=== PATIENT | male | born 1970 | race Caucasian/White ===

== ENCOUNTER → 2021-09-21 | Day surgery (SDC) | payer OTHER ==
[2021-09-19 11:04] VITALS: BMI 31.5
--- NOTE | 2021-09-20 18:03 | HP ---
HISTORY AND PHYSICAL DATE OF SURGERY: 09/21/2021 Jesus Santo is a 51-year-old gentleman seen with progressive right shoulder pain. We discussed treatment options with him. He elected to proceed with arthroscopy. Consent was obtained. PAST MEDICAL HISTORY: Noncontributory. PAST SURGICAL HISTORY: Knee arthroscopy. DAILY MEDICATIONS: None. ALLERGIES: NONE REPORTED. SOCIAL HISTORY: He denies current tobacco use. PHYSICAL EXAMINATION: Evaluation of the right shoulder: Flexion 150 degrees, abduction 120 degrees. External rotation is 40 degrees with some weakness. There is tenderness along the anterolateral acromion and rotator cuff insertion site. Impingement is positive at 90 degrees. Drop- arm sign is positive. Cross adduction sign is positive. Distal neurovascular exam is intact. IMAGING: Right shoulder radiographs revealed a type 2 acromion, evidence for acromioclavicular joint osteoarthritis. Right shoulder MRI revealed acromioclavicular joint osteoarthritis, impingement and partial rotator cuff tendon tear. IMPRESSION: 1. Right shoulder impingement with partial rotator cuff tear. 2. Right shoulder acromioclavicular joint osteoarthritis. PLAN: Right shoulder arthroscopy with subacromial decompression, possible arthroscopic rotator cuff repair, Thiago procedure and debridement. MMODL / IJN: [id number] /
[~2021-09-21] MED LIST: DEXAMETHASONE SOD PHOSPHATE 4 MG/ML 1 ML VIAL IV ONE; DEXAMETHASONE SOD PHOSPHATE 4 MG/ML 1 ML VIAL ONE; GLYCOPYRROLATE 0.2 MG/ML 2 ML VIAL ONE; HYDROmorphone 0.5 MG/0.5 ML SYRINGE IVP PRN; LACTATED RINGERS 1,000 ML IV SCH; LIDOCAINE 1% (10MG/ML) FOR IV START INTRADERMA PRN; LIDOCAINE 1% INJ 10MG/ML (20 ML MDV) ONE; MIDAZOLAM 2 MG/2 ML VIAL IV ONE; NEOSTIGMINE 1 MG/ML 10 ML VIAL ONE; ONDANSETRON 4 MG/2 ML VIAL IVP ONE; PROPOFOL 10 MG/ML 20 ML VIAL IV ONE; ROCURONIUM 10 MG/ML (5 ML VIAL) IV ONE; ROPIVACAINE 5 MG/ML 30 ML VIAL ONE; SUCCINYLCHOLINE CHLORIDE 100 MG/5 ML SYR IV ONE; fentaNYL (PF) 50 MCG/ML 2 ML AMP IV ONE
--- NOTE | 2021-09-21 08:00 | P.ANPRN ---
Procedure Note - Anesthesia - Nerve Block Performed Right Interscalene Single Time Out Performed: Yes ([id number]) Date of Procedure: 09/21/21 Location of Patient: PreOp Indication: Acute Post-Operative Pain, Dx/Pain Location, Requested by Surgeon Specifically requested for management of pain by DrLucia: Rojelio Dallas Sedation Type: Sedate with meaningful contact maintained Preparation: Sterile Prep, Sterile Dressing Position: Sitting Needle Types: Pajunk Needle Gauge: 21 Ultrasound used to visualize needle placement: Yes Ultrasound used to observe medication spread: Yes Injectate: 0.5% Ropivacaine (see comment for volume) (25 with dexamethasone 4 mg) Blood Aspirated: No Pain Paresthesia on Injection Noted: No Resistance on Injection: Normal Image Stored and Saved: Yes Events: Uneventful and Well Tolerated
--- NOTE | 2021-09-21 09:39 | P.OP ---
Date of Procedure: 09/21/21 Preoperative Diagnosis: Right shoulder impingement Postoperative Diagnosis: 1. Right shoulder rotator cuff tear 2. Right shoulder impingement 3. Right shoulder acromioclavicular joint osteoarthritis 4. Right shoulder superficial superior labral tear Procedure(s) Performed: 1. Right shoulder arthroscopic rotator cuff repair 2. Right shoulder arthroscopic subacromial decompression 3. Right shoulder arthroscopic Thiago procedure 4. Right shoulder debridement superficial labral tear Implants: 14.75 Arthrex swivel lock anchor Anesthesia: GETA, regional (Interscalene block) Surgeon: Rojelio Dallas Glove Operator #1: Chris Garrett Estimated Blood Loss (ml): 7 Pathology: none sent Condition: stable Disposition: PACU Indications for Procedure: 51-year-old patient seen with progressive right shoulder pain. After having treatment options discussed, he elected to proceed with arthroscopy. Operative Findings: See description of procedure Description of Procedure: Patient underwent an interscalene block by department of anesthesia. The patient was then taken to the operative suite. The patient underwent a general anesthetic by the department of anesthesia. The patient was placed into a lateral position and secured. There was appropriate padding of the bony prominence. Right shoulder was then prepped and draped in normal sterile orthopedic fashion. We placed the extremity in 10 pounds of longitudinal traction. A posterior incision was now made for a posterior working portal site. The trocar and cannula were inserted into the glenohumeral joint. Arthroscopy was initiated. Spinal needle was now inserted anteriorly, to ascertain the anterior working portal site. An incision was now made in that area, a trocar was inserted followed by a probe. There was some superficial tearing of the superior labrum. The biceps appeared stable. The remaining labrum was probed and found stable. There was no significant chondromalacia. I debrided out the superficial labral tear getting down to stable labral tissue. The residual labrum was probed and was found to be stable. Instruments now removed from glenohumeral joint. Utilizing the posterior working portal site, the trocar and cannula were inserted into the subacromial space. Arthroscopy initiated. I made an incision 2 fingerbreadths lateral to the acromion. I introduced my trocar followed by my ArthroCare ablator. I now began ablating thick subacromial bursal tissue, which exposed the undersurface of the anterior acromion. There was diminished subacromial space. There was a very prominent anterior acromion. A motorized bur was introduced and a subacromial decompression was performed. I also excised some osteophytes off the inferior aspect of the distal clavicle. The AC joint was visualized and noted to be fairly arthritic. The motorized bur was introduced in the anterior portal site and a Thiago procedure was performed without difficulty, decompressing the AC joint nicely. I turned my attention to the rotator cuff. There was a 1.5 cm rotator cuff tear. I debrided the margins getting down to stable tendon tissue. I introduced my motorized bur and abraded the footprint area, getting some petechial bleeding. With the assistance of Chris BARFIELD I passed 3 everted mattress sutures through good bites of rotator cuff tendon. I now punched a hole in the footprint area for insertion of an anchor. I passed all 6 limbs of suture through the eyelet of a 4.75 Arthrex swivel lock anchor. I placed the eyelet into the pre-punched hole. I held in position while Chris BARFIELD tensioned all suture limbs and deployed the anchor with good fixation noted. All residual suture limbs were now clipped. We had good compression of the tendon along the entire footprint. Instruments now removed from the portal sites. All portal sites were approximated with nylon suture. Sterile dressings were applied followed by a shoulder sling. Chris BARFIELD assisted in this case. The patient was awakened, transferred to a bed, and taken to recovery in stable condition.
[2021-09-21 09:43] VITALS: TEMP 97.8
[2021-09-21 10:35] VITALS: RESP 18
[2021-09-21 10:50] VITALS: BP 137/74; PULSE 52
== END | disposition home or self-care (01) ==
LOC: OR 06:24
PROVIDERS: ATTEND Orthopaedic Surgery
DX: M75.101 Unspecified rotator cuff tear or rupture of right shoulder, not specified as traumatic (principal); M25.811 Other specified joint disorders, right shoulder; M19.011 Primary osteoarthritis, right shoulder; S43.431A Superior glenoid labrum lesion of right shoulder, initial encounter; X58.XXXA Exposure to other specified factors, initial encounter; M25.711 Osteophyte, right shoulder; Z97.2 Presence of dental prosthetic device (complete) (partial); L40.8 Other psoriasis; Z98.890 Other specified postprocedural states
CPT/HCPCS: 64415; 76942; 29826; 29827; 29824; C1713; J2250; J1100; J2710; J0690; J2405; J2001; J3010; J2795; J0330; J2704

== ENCOUNTER 2023-11-01 12:48 | Day surgery (SDC) | payer OTHER ==
[2023-10-30 11:56] VITALS: BMI 30.1
--- NOTE | 2023-10-31 21:50 | HP ---
HISTORY AND PHYSICAL DATE OF SURGERY: 11/01/2023. HISTORY OF PRESENT ILLNESS: Jesus Santo is a 53-year-old gentleman, seen with progressive right knee pain. We discussed options. He elected to proceed with right knee arthroscopy. Consent was obtained. PAST MEDICAL HISTORY: Noncontributory. PAST SURGICAL HISTORY: Knee arthroscopy. DAILY MEDICATIONS: Mobic. ALLERGIES: None. SOCIAL HISTORY: Denies tobacco use. PHYSICAL EVALUATION OF THE RIGHT KNEE: Range of motion is 0 to 130 degrees. Tenderness along the medial joint line. Positive medial Gunnar's. Ligaments stable. Hip rotation without pain. Distal neurovascular exam intact. IMAGING STUDIES: Radiographs of the right knee revealed moderate osteoarthritic changes. MRI of right knee revealed a complex medial meniscal tear and osteoarthritic changes. IMPRESSION: Internal derangement of right knee with medial meniscal tear. PLAN: Right knee arthroscopy with partial medial meniscectomy and debridement. MMODL / IJN: [id number] /
[~2023-11-01 12:48] MED LIST changes: -DEXAMETHASONE SOD PHOSPHATE 4 MG/ML 1 ML VIAL ONE; -GLYCOPYRROLATE 0.2 MG/ML 2 ML VIAL ONE; -HYDROmorphone 0.5 MG/0.5 ML SYRINGE IVP PRN; -LIDOCAINE 1% INJ 10MG/ML (20 ML MDV) ONE; -MIDAZOLAM 2 MG/2 ML VIAL IV ONE; -NEOSTIGMINE 1 MG/ML 10 ML VIAL ONE; -PROPOFOL 10 MG/ML 20 ML VIAL IV ONE; -ROCURONIUM 10 MG/ML (5 ML VIAL) IV ONE; -ROPIVACAINE 5 MG/ML 30 ML VIAL ONE; -SUCCINYLCHOLINE CHLORIDE 100 MG/5 ML SYR IV ONE; +droPERidol 5 MG/2 ML VIAL IVP ONE; -fentaNYL (PF) 50 MCG/ML 2 ML AMP IV ONE
[2023-11-01] MEDS ORDERED: DEXAMETHASONE SOD PHOSPHATE 4 MG/ML 1 ML VIAL IVP ONE (13:36)
[2023-11-01] MEDS ORDERED: ONDANSETRON 4 MG/2 ML VIAL IVP ONE (13:36)
[2023-11-01] MEDS ORDERED: KETOROLAC 15 MG/ML 1 ML VIAL ONE (16:04)
[2023-11-01] MEDS ORDERED: PROPOFOL 10 MG/ML 20 ML VIAL IV ONE (16:04)
[2023-11-01] MEDS ORDERED: fentaNYL (PF) 50 MCG/ML 2 ML AMP ONE (16:04)
[2023-11-01] MEDS ORDERED: MIDAZOLAM 2 MG/2 ML VIAL ONE (16:04)
[2023-11-01] MEDS ORDERED: LIDOCAINE 1% INJ 10MG/ML (20 ML MDV) ONE (16:04)
[2023-11-01] MEDS ORDERED: BUPIVACAINE (PF) 0.25% 30 ML VIAL SQ ONE ×2 (16:24→16:35)
--- NOTE | 2023-11-01 16:53 | P.OP ---
Date of Procedure: 11/01/23 Preoperative Diagnosis: Internal derangement right knee Postoperative Diagnosis: 1. Tear medial meniscus right knee 2. Grade 4 chondromalacia medial femoral condyle right knee 3. Reactive synovitis medial, lateral and suprapatellar compartments right knee 4. Grade 2 chondromalacia patella right knee Procedure(s) Performed: 1. Arthroscopic partial medial meniscectomy right knee 2. Arthroscopic microfracture medial femoral condyle right knee 3. Arthroscopic partial synovectomy medial, lateral and suprapatellar compartments right knee 4. Arthroscopic chondroplasty patella right knee Anesthesia: NIXONA, local Surgeon: Rojelio Dallas Estimated Blood Loss (ml): 10 Pathology: none sent Condition: stable Disposition: PACU Indications for Procedure: 53-year-old gentleman who was seen with progressive right knee pain. After having treatment options discussed, he elected to proceed with arthroscopy. Operative Findings: See description of procedure Description of Procedure: Patient was taken to the operative suite. Patient underwent a general anesthetic by the department of anesthesia. Patient was given preoperative antibiotics. The right lower extremity was placed in a well-padded arthroscopic leg ayon. The right leg was prepped and draped in the normal sterile orthopedic fashion. A lateral parapatellar and suprapatellar incision was made. Trochars were inserted. Arthroscopy was initiated. Suprapatellar pouch revealed diffuse thick reactive synovitis. The patellofemoral joint appeared to articulate congruently. There grade 2 chondromalacia patella with some osteochondral flap tears present. The scope was guided into the medial gutter. No loose bodies or plica were identified. The scope was then guided into the medial compartment. A medial parapatellar incision was made. Trocar inserted followed by probe. There was a complex tear involving the posterior horn of the medial meniscus. There were grade 3/4 chondromalacia changes diffusely about the medial femoral condyle. There was one area of grade 4 chondromalacia along the medial aspect with exposed bone measuring 1 x 2 cm. There is an area of exposed bone along the medial tibial plateau in that same area measuring 1.5 x 1.5 cm. There was thick reactive synovitis anteriorly. I performed a partial medial meniscectomy getting down to stable meniscal tissue. I performed a partial synovectomy decompressing the reactive synovitis. I now introduced a microfracture awl and I performed a microfracture to the area of exposed bone on the medial femoral condyle penetrating the bone with resultant bleeding at the microfracture site. The residual meniscus was stable. The residual osteochondral surface was stable. There was good decompression of the synovitis. Scope and probe were then guided into the intercondylar notch. Cruciates were identified, probed and found to be stable. The scope and probe were then guided into lateral compartment. Lateral meniscus was found to be stable. There were some grade 1 chondromalacia changes along the lateral compartment without tears. There was some thick reactive synovitis anteriorly. I introduced a motorized shaver and performed a partial synovectomy decompressin g the reactive synovitis. There was good decompression of the synovitis. The scope was in guided back into the suprapatellar compartment. I introduced a motorized shaver into the suprapatellar compartment. I performed a chondroplasty of the patella getting down to stable osteochondral tissue. I performed a partial synovectomy decompressing the reactive synovitis. The residual osteochondral surface of the patella was stable. There was good decompression of the synovitis. I took one more look around the entire knee, no residual debris. Instruments were now removed from the joint. The joint was infiltrated with .25% Marcaine. Steri-Strips were applied to the portal sites. Sterile dressings were applied. The patient was placed into a RAPHAEL hose. No tourniquet was utilized. The patient was awakened, transferred to a bed and taken to recovery stable satisfactory condition.
[2023-11-01] MEDS: HYDROmorphone 0.5 MG/0.5 ML SYRINGE IVP PRN ×2 (16:56→17:05)
[2023-11-01 17:11] VITALS: RESP 16; TEMP 97
[2023-11-01 17:59] VITALS: BP 123/81; PULSE 69
== END 2023-11-01 18:11 | disposition home or self-care (01) ==
LOC: OR 12:48
PROVIDERS: ATTEND Orthopaedic Surgery
DX: S83.241A Other tear of medial meniscus, current injury, right knee, initial encounter (principal); M23.91 Unspecified internal derangement of right knee; M22.41 Chondromalacia patellae, right knee; M65.161 Other infective (teno)synovitis, right knee; Z79.1 Long term (current) use of non-steroidal anti-inflammatories (NSAID); Z79.899 Other long term (current) drug therapy; X58.XXXA Exposure to other specified factors, initial encounter
CPT/HCPCS: 29881; 29879; J2250; J1100; J0690; J2405; J2001; J3010; J1885; J2704; J1170; J0665